=== PATIENT | female | born 1955 | race Caucasian/White ===

== ENCOUNTER 2022-07-31 16:04 | Inpatient (IN) | payer OTHER ==
[~2022-07-31] VITALS: Ht 170.2 cm; Wt 111.4 kg
[~2022-07-31 16:04] MED LIST: ASPIRIN CHEWABL81 MG PO; CELEXA10 MG PO; LISINOPRIL20 MG PO; METFORMIN HYDR500 MG PO; OXYCODON-ACETA1 EACH PO; REMERON15 M2 PO; RISPERDAL0.5 MG PO; TOPROL XL25 MG PO
[2022-07-31 16:30] VITALS: BP 135/86
[2022-08-01] VITALS: BP 145/82
[2022-08-01 06:13] LABS: BASO # 0.1 10*3/uL (0.0-0.1); EOS # 0.2 10*3/uL (0.0-0.4); EOS % 3.4 % (1.0-4.0); LYMPH # 2.2 10*3/uL (1.3-4.4); LYMPH % 31.9 % (27.0-41.0); MEAN CORPUSCULAR HGB 31.9 pg (27.0-31.0); MEAN CORPUSCULAR HGB CONC 34.3 g/dl (33.0-37.0); MEAN PLATELET VOLUME 9.2 fl (9.6-12.3); MONO # 0.6 10*3/uL (0.1-1.0); MONO % 8.3 % (3.0-9.0); NEUT # 3.8 10*3/uL (2.3-7.9); PLATELET COUNT AUTOMATED 264 10*3/uL (130-400); RED BLOOD COUNT 3.98 10*6/uL (4.10-5.10); RED CELL DISTRI WIDTH 13.6 % (0-14.5); WHITE BLOOD COUNT 6.8 10*3/uL (4.8-10.8)
[2022-08-01 06:25] LABS: ALKALINE PHOSPHATASE 63 U/L (46-116); BUN 13 mg/dl (9-23); CHLORIDE 106 mmol/L (98-107); CREATININE 0.75 mg/dL (0.55-1.02); SGPT/ALT 47 U/L (10-49); SODIUM 141 mmol/L (136-145); TOTAL PROTEIN 7.2 gm/dL (6.0-8.0)
[2022-08-01 08:00] VITALS: BP 133/76
[2022-08-01 16:00] VITALS: BP 147/95
[2022-08-01 16:51] LABS: BILIRUBIN Negative (Negative); BLOOD Negative (Negative); CLARITY Clear (Clear); COLOR Yellow (Yellow); GLUCOSE Negative (Negative); KETONE Negative (Negative); LEUKO ESTERASE 3+ (Negative); NITRITE Negative (Negative); PH 6.5 (4.5-8.0); SPECIFIC GRAVITY <= 1.005 (1.001-1.030)
[2022-08-01 16:57] LABS: URINE AMPHETAMINES Negative (1000ng/ml); URINE BARBITURATES Negative (200ng/ml); URINE BENZODIAZEPINES Negative (200ng/ml); URINE CANNABINOIDS (THC) Negative (50ng/ml); URINE COCAINE Negative (300ng/ml); URINE METHADONE Negative (300ng/ml); URINE OPIATES Negative (300ng/ml); URINE PHENCYCLIDINE Negative (25ng/ml)
[2022-08-01 16:59] LABS: BACTERIA 2+; WBC 31-40 wbc/hpf (0-5)
[2022-08-01 20:00] VITALS: BP 129/75
[2022-08-02] VITALS: BP 120/67
[2022-08-02 08:00] VITALS: BP 101/61
[2022-08-02 12:00] VITALS: BP 146/103
[2022-08-02 16:00] VITALS: BP 111/76
[2022-08-02 20:00] VITALS: BP 143/84
[2022-08-03] VITALS: BP 148/71
[2022-08-03 05:25] LABS: BUN 11 mg/dl (9-23); CHLORIDE 108 mmol/L (98-107); CREATININE 0.77 mg/dL (0.55-1.02); SODIUM 142 mmol/L (136-145)
[2022-08-03 06:17] LABS: BASO # 0.1 10*3/uL (0.0-0.1); BASO % 0.6 % (0.0-1.0); EOS # 0.2 10*3/uL (0.0-0.4); HEMATOCRIT 35.7 % (37.0-47.0); LYMPH # 2.9 10*3/uL (1.3-4.4); LYMPH % 33.4 % (27.0-41.0); MEAN CELL VOLUME 95.2 fl (81.0-99.0); MEAN CORPUSCULAR HGB 32.3 pg (27.0-31.0); MEAN CORPUSCULAR HGB CONC 33.9 g/dl (33.0-37.0); MEAN PLATELET VOLUME 9.5 fl (9.6-12.3); MONO # 0.7 10*3/uL (0.1-1.0); MONO % 8.1 % (3.0-9.0); NEUT # 4.8 10*3/uL (2.3-7.9); NEUT % 55.7 % (47.0-73.0); PLATELET COUNT AUTOMATED 267 10*3/uL (130-400); RED BLOOD COUNT 3.75 10*6/uL (4.10-5.10); RED CELL DISTRI WIDTH 13.9 % (0-14.5); WHITE BLOOD COUNT 8.6 10*3/uL (4.8-10.8)
[2022-08-03 08:00] VITALS: BP 134/78
[2022-08-03] MEDS ORDERED: REMERON15 M2 PO (08:08)
[2022-08-03] MEDS ORDERED: ATORVASTATIN CA40 M1 PO (08:08)
[2022-08-03] MEDS ORDERED: RISPERIDONE0.5 MG PO (08:08)
[2022-08-03] MEDS ORDERED: MIRTAZAPINE15 M2 PO (08:11)
[2022-08-03] MEDS ORDERED: RISPERDAL0.5 MG PO (08:11)
== END 2022-08-03 12:15 | disposition home or self-care (01) | DRG 64 ==
LOC: ICCU 16:04
PROVIDERS: Registered Nurse; ADMIT Internal Medicine; ATTEND Internal Medicine
DX: I63.9 Cerebral infarction, unspecified (principal); G93.41 Metabolic encephalopathy; F32.3 Major depressive disorder, single episode, severe with psychotic features; I25.10 Atherosclerotic heart disease of native coronary artery without angina pectoris; E11.9 Type 2 diabetes mellitus without complications; F32.A Depression, unspecified; I10 Essential (primary) hypertension; R29.700 NIHSS score 0; I25.2 Old myocardial infarction; Z95.5 Presence of coronary angioplasty implant and graft; Z82.49 Family history of ischemic heart disease and other diseases of the circulatory system; Z88.6 Allergy status to analgesic agent; Z88.8 Allergy status to other drugs, medicaments and biological substances